=== PATIENT | female | born 2005 | race Caucasian/White ===

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

== ENCOUNTER 2024-09-20 00:56 | Emergency (ER) | payer OTHER ==
[2024-09-20] MEDS ORDERED: Ibuprofen 200 MG TAB ONE (03:00)
== END 2024-09-20 04:13 | disposition home or self-care (01) ==
LOC: ERS 00:56
DX: S09.90XA Unspecified injury of head, initial encounter (principal); W07.XXXA Fall from chair, initial encounter; Y93.89 Activity, other specified
CPT/HCPCS: 70450; 72125